=== PATIENT | male | born 1995 | race African-American/Black ===

== ENCOUNTER 2019-12-03 01:21 | Emergency (ER) | payer BC, SELFPAY ==
[2019-12-03 01:41] VITALS: BP 139/59; PULSE 58; RESP 18; TEMP 36.8; O2SAT 100
--- NOTE | 2019-12-03 01:44 | ED.GENADULT ---
HPI - General Adult General Chief complaint: Unspecified Stated complaint: nose injury Time Seen by Provider: 12/03/19 01:38 Source: patient and RN notes reviewed Mode of arrival: ambulatory Limitations: no limitations History of Present Illness HPI narrative: Pt is a 24 y/o male who presents to the ED with c/o nose injury happening this evening. He notes that he was elbowed twice in his nose while playing basketball this evening. Pt states that he has had pain in his nose ever since the injury, and notes that he is concerned he may have a broken nose. He currently denies any visual changes, headache, or other symptoms. MD complaint: Nose Injury Location: face (nose) Associated symptoms: other (nasal pain) Related Data Home Medications Medication Instructions Recorded Confirmed No Home Medications 12/03/19 12/03/19 Allergies Allergy/AdvReac Type Severity Reaction Status Date / Time No Known Allergies Allergy Unverified 12/03/19 01:24 Review of Systems Review of Systems: Narrative: EYES: Denies visual changes, redness, or discharge. ENT: Denies rhinorrhea, congestion, sore throat, or otalgia. Reports nasal pain. NEUROLOGIC: Denies headache, numbness, or weakness. All systems reviewed & are unremarkable except as noted in HPI and below PMFSH Past Medical History Medical History Healthy adult male Surgical History Surgical History No significant past surgical history Social History Social History Smoking status: Never smoker Gender identity (if verbalized by the patient): Male Exam Narrative: Exam Narrative: GENERAL: Well-appearing, well-nourished, and in no acute distress. HEAD: Normocephalic, atraumatic. EYES: PERRLA and EOMI. ENT: No septal hematoma. Anterior dried blood in nares. Mucous membranes moist. NECK: Supple. CHEST: Clear to auscultation. No respiratory distress. HEART: Regular rate and rhythm. No murmur heard. Normal peripheral pulses. ABDOMEN: Soft, nontender, nondistended, normal active bowel sounds. EXTREMITIES: Normal range of motion. No edema. SKIN: Warm, dry, no rash. NEURO: No focal deficits. Alert and oriented. Course Course Emergency Course: Patient with impacted face and nasal bridge without deformity, no sign of septal deviation. There is dried anterior blood, no septal hematoma. No facial deformity. Patient advised not to blow his nose, advised to apply Vaseline, limit contact sports to reduce risk of reinjury. Patient is ambulatory without neurological deficits. Otherwise feeling well without vision changes. No signs of concussion. No signs of severe intracranial injury or cervical injury. Patient then discharged home in stable condition. Vital Signs Vital signs: Vital Signs Temperature 36.8 C 12/03/19 01:41 Pulse Rate 58 L 12/03/19 01:41 Respiratory Rate 18 12/03/19 01:41 Blood Pressure 139/59 L 12/03/19 01:41 Pulse Oximetry 100 12/03/19 01:41 Temperature 36.8 C 12/03/19 01:41 Pulse Rate 58 L 12/03/19 01:41 Respiratory Rate 18 12/03/19 01:41 Blood Pressure 139/59 L 12/03/19 01:41 Pulse Oximetry 100 12/03/19 01:41 Medical Decision Making Vital Signs Vital Signs: Vital Signs Temperature 36.8 C 12/03/19 01:41 Pulse Rate 58 L 12/03/19 01:41 Respiratory Rate 18 12/03/19 01:41 Blood Pressure 139/59 L 12/03/19 01:41 Pulse Oximetry 100 12/03/19 01:41 Temperature 36.8 C 12/03/19 01:41 Pulse Rate 58 L 12/03/19 01:41 Respiratory Rate 18 12/03/19 01:41 Blood Pressure 139/59 L 12/03/19 01:41 Pulse Oximetry 100 12/03/19 01:41 Discharge Plan Discharge Clinical Impression: Anterior epistaxis, Contusion of nose, initial encounter Blunt trauma of face Qualifiers: Encounter type: initial encounter Qualified Code(s): S09.93XA - Unspecified injury of face, in
[2019-12-03 02:03] VITALS: BP 119/64; PULSE 56; RESP 16; TEMP 36.8; O2SAT 100
== END 2019-12-03 02:05 | disposition home or self-care (01) ==
PROVIDERS: Emergency Provider Emergency Medicine
DX: S00.33XA Contusion of nose, initial encounter (principal); W50.0XXA Accidental hit or strike by another person, initial encounter; Y93.67 Activity, basketball
CPT/HCPCS: 99282

== ENCOUNTER 2019-12-10 23:53 | Emergency (ER) | payer BC, SELFPAY ==
[2019-12-11] VITALS: BP 153/82; PULSE 78; RESP 20; TEMP 36.9; O2SAT 100
--- NOTE | 2019-12-11 00:19 | ED.URI ---
HPI - URI/Sore Throat General Chief Complaint: Upper Respiratory Infection Stated Complaint: wants to be tested for coronavirus, or flu Time Seen by Provider: 12/11/19 00:18 Source: patient and RN notes reviewed Mode of arrival: other Limitations: no limitations History of Present Illness HPI Narrative: Pt is a 24 y/o male who presents to the ED with c/o a cough that began Monday (12/06/19). Pt believes that he has the Coronavirus. Pt denies any foreign travel and denies being around anyone who says they have the Coronavirus. Pt states that he had a fever yesterday (12/10/19), but denies having a fever today. Pt has been taking Ibuprofen for his body aches. Pt also reports diarrhea, chest tightness pain, nasal discharge, and sneezing, but denies vomiting. MD elicited complaint: cough Onset (ago): day(s) (5) Consistency: constant Able to tolerate fluids by mouth: Yes Associated symptoms: myalgias, rhinorrhea, chest pain (tightness), diarrhea and other (sneezing) Treatments prior to arrival: ibuprofen Related Data Allergies Allergy/AdvReac Type Severity Reaction Status Date / Time No Known Allergies Allergy Unverified 12/11/19 00:03 Review of Systems Review of Systems: All systems reviewed & are unremarkable except as noted in HPI and below Constitutional: Constitutional: Denies fever(s) ENT: Reports nasal discharge and Reports other (sneezing) Cardiovascular: Cardiovascular: Reports chest pain (tightness) Respiratory: Respiratory: Reports cough Gastrointestinal: Gastrointestinal: Reports diarrhea and Denies vomiting Musculoskeletal: Musculoskeletal: Reports myalgias PMFSH Past Medical History Medical History (Updated 12/11/19 @ 00:29 by Dionna Encarnacion MD) Patient denies significant medical history Surgical History Surgical History No significant past surgical history Social History Social History Smoking status: Never smoker Gender identity (if verbalized by the patient): Female Exam Narrative: Exam Narrative: GENERAL: Well-appearing, well-nourished, and in no acute distress. HEAD: Normocephalic, atraumatic EYES: PERRLA and EOMI, conjunctiva clear without discharge EARS: TM's clear bilaterally without erythema or dullness NOSE: Nares clear, no rhinorrhea or epistaxis THROAT:Mucous membranes moist, Oropharynx normal without erythema, exudate, peritonsillar swelling or fluctuance NECK: Supple, without lymphadenopathy or mass RESPIRATORY: No respiratory distress, Airway patent, Respirations non-labored, Clear to auscultation without rales, rhonchi or wheeze HEART: Regular rate and rhythm. No murmur heard. Normal peripheral pulses. ABDOMEN: Soft, nontender, nondistended, normal active bowel sounds. No masses. No rebound or guarding, No organomegaly. EXTREMITIES: No edema, normal strength with full range of motion. SKIN: Warm, dry, normal color without rash NEURO: Alert and oriented x3. CN 2-12 grossly intact. No focal deficits. PSYCH: Normal mood and affect. Course Vital Signs Vital signs: Vital Signs Temperature 98.5 F 12/11/19 00:00 Pulse Rate 78 12/11/19 00:00 Respiratory Rate 20 12/11/19 00:00 Blood Pressure 153/82 H 12/11/19 00:00 Pulse Oximetry 100 12/11/19 00:00 Temperature 98.5 F 12/11/19 00:00 Pulse Rate 78 12/11/19 00:00 Respiratory Rate 20 12/11/19 00:00 Blood Pressure 153/82 H 12/11/19 00:00 Pulse Oximetry 100 12/11/19 00:00 MDM - URI/Sore Throat Lab Data Labs: Influenza A Screen Positive Reference Range: Negative Influenza B Screen Negative Reference Range: Negative Discharge Plan Discharge Clinical Impression: Influenza Patient Disposition: Home, Self-Care Condition: Stable Instructions: Influenza (ED) Prescriptions: New oseltamivir [Tamiflu] 75 mg capsule
== END 2019-12-11 00:30 | disposition home or self-care (01) ==
PROVIDERS: Emergency Provider General Practice
DX: J10.1 Influenza due to other identified influenza virus with other respiratory manifestations (principal)
CPT/HCPCS: 87804; 99283

== ENCOUNTER 2021-06-05 02:33 | Emergency (ER) | payer BC, SELFPAY ==
--- NOTE | ~2021-06-05 | XR_ITS ---
EXAMINATION: XR orbits min 4V DATE: 06/05/2021 04:11 INDICATION: Fall one day prior with laceration to the left eyebrow TECHNIQUE: 4 views of the orbits were obtained including AP, Ramos and left and right oblique projec tions. COMPARISON: None. FINDINGS: No maxillofacial fractures identified. Specifically the alston of the orbits and paranasal sinuses vandana ear intact. The mastoid air cells and paranasal sinuses appear well-pneumatized with no evident air-f luid levels. Nasal septum is midline. Multiple dental restorations. No other radiopaque foreign theron s. IMPRESSION: 1. No acute osseous abnormality. Reviewed, dictated and finalized at location A.
[2021-06-05 02:41] VITALS: BP 167/84; PULSE 52; RESP 18; TEMP 36.7; O2SAT 100
[2021-06-05] MEDS: TETANUS,DIPHTHERIA,AC PERTUSSIS ADULT (0.5 ML) BOOSTRIX IM (03:43)
--- NOTE | 2021-06-05 03:50 | ED.FALL ---
HPI - Fall General Chief Complaint: Fall Stated Complaint: left orbit laceration Time Seen by Provider: 06/05/21 03:02 Source: RN notes reviewed History of Present Illness HPI Narrative: Patient presents emergency department from home for a fall. Patient states that he fell at approximately 1 AM on 06/04/2021. He states he had slipped at that time and struck the left side of his head he states that he developed a wound over his left lateral orbit at that time he states that he came in this evening after talking with his parents and noticing some swelling to the area he denies any bleeding or drainage from the wound he denies loss of consciousness he denies headache vision changes, epistaxis neck pain or any other symptoms he denies any other trauma from the fall he is unsure of his last tetanus shot Related Data Allergies Allergy/AdvReac Type Severity Reaction Status Date / Time No Known Allergies Allergy Unverified 12/11/19 00:03 Review of Systems Review of Systems: Gen.: Denies fevers or chills Eyes: Denies eye pain or visual change ENT: Denies congestion Respiratory: Denies shortness of breath CV: Denies chest pain GI: Denies abdominal pain nausea, emesis Musculoskeletal: Denies back pain or muscle pain Neuro: Denies headache or loss of consciousness Skin: See HPI Except as documented, all other systems reviewed and negative PMFSH Past Medical History Medical History Patient denies significant medical history Surgical History Surgical History No significant past surgical history Social History Social History Smoking status: Never smoker Gender identity (if verbalized by the patient): Male Exam Narrative: APPEARANCE: No acute distress, nontoxic, resting in bed EYES: EOMI HEENT: Normocephalic, TMs clear bilaterally nares patent there is a 2 cm abrasion over the left superior lateral orbit that is overlying scabbing no drainage or surrounding erythema there is mild tenderness to the orbit in this region the remainder of the upper orbit and left inferior orbit are nontender to palpation no tenderness over the remainder of the face RESPIRATORY: No respiratory distress Clear to auscultation bilaterally with no rhonchi wheezing or rales. CARDIOVASCULAR: Regular rate and rhythm without murmurs rubs or gallops. ABDOMINAL: Soft, nontender, MUSCULOSKELETAl: Moves all extremities. No clubbing, cyanosis or edema. NEURO: Awake and alert x 3. Following commands, speech normal, no focal deficits SKIN:: Warm, dry. No rashes lesions or abrasions except as noted in HEENT PSYCHIATRIC: Normal affect/mood, Course Course Emergency Course: Discussed with patient results of workup and diagnosis. Discussed need for follow-up with primary care, proper use of medication, and reasons to return to the emergency department. Patient understands and agrees to current treatment plan Vital Signs Vital signs: Vital Signs Temperature 98.1 F 06/05/21 02:41 Pulse Rate 52 L 06/05/21 02:41 Respiratory Rate 18 06/05/21 02:41 Blood Pressure 167/84 H 06/05/21 02:41 Pulse Oximetry 100 06/05/21 02:41 Temperature 98.1 F 06/05/21 02:41 Pulse Rate 52 L 06/05/21 02:41 Respiratory Rate 18 06/05/21 02:41 Blood Pressure 167/84 H 06/05/21 02:41 Pulse Oximetry 100 06/05/21 02:41 MDM - Fall MDM Narrative Medical decision making narrative: Patient with wound over left lateral superior orbit occurred over 24 hours ago. The wound is well approximated with scabbing present there is no signs of active bleeding or infection at this time with wound over 24 hours will let heal by secondary intention Imaging Data Attestation: I personally reviewed and interpreted this imaging study as follows: My impression: Orbit x-ray reviewed myself shows no acute process Discharge Odin
[2021-06-05 04:24] VITALS: BP 134/77; PULSE 61; RESP 14; O2SAT 99
== END 2021-06-05 04:24 | disposition home or self-care (01) ==
PROVIDERS: Emergency Provider Emergency Medicine
DX: S01.112A Laceration without foreign body of left eyelid and periocular area, initial encounter (principal); Z23 Encounter for immunization; W01.0XXA Fall on same level from slipping, tripping and stumbling without subsequent striking against object, initial encounter
CPT/HCPCS: 70200; 90471; 90715; 99283